=== PATIENT | male | born 1995 | race Caucasian/White ===

== ENCOUNTER 2025-03-01 05:26 | Inpatient (IN) | payer BC ==
[2025-03-01] MEDS ORDERED: Enoxaparin 100 MG (1 mL) SYRINGE ONE (05:49)
[2025-03-01 05:53] LABS: #Basophils 0.12 10x3/uL (0.0-0.2); #Eosinophils 0.64 10x3/uL (0.0-0.5); #Monocytes 0.55 10x3/uL (0.0-1.1); #Neutrophils 3.50 10x3/uL (1.5-8.4); %Basophils 1.6 % (0.0-2.0); %Eosinophils 8.8 % (0.0-6.0); %Lymphocytes 33.8 % (18.0-47.0); %Monocytes 7.5 % (0.0-10.0); %Neutrophils 48.0 % (40.0-75.0); Hematocrit 50.2 % (38.8-50.0); Hemoglobin 16.8 g/dL (13.5-17.5); Mean Corpuscular Hemoglobin 29.4 pg (27.0-33.0); Mean Corpuscular Volume 87.8 fL (81.2-95.1); Platelet Count 309 10x3/uL (150-450); Red Blood Cell (RBC) Count 5.72 10x6/uL (4.32-5.72); White Blood Cell (WBC) Count 7.30 10x3/uL (3.5-10.5)
[2025-03-01 06:07] LABS: ALT (SGPT) 35 U/L (Less than 45); AST (SGOT) 28 U/L (11-34); Albumin 4.7 g/dL (3.1-4.5); Alkaline Phosphatase 45 U/L (40-110); Anion Gap 14 mmol/L (10-20); BUN (Urea Nitrogen) 15 mg/dL (8.9-20.6); Bilirubin, Total 0.5 mg/dL (0.3-1.2); Calc. Creatinine Clearance 0 mL/min (70-130); Calcium 9.5 mg/dL (7.8-10.44); Carbon Dioxide 24 mmol/L (22-29); Chloride 105 mmol/L (98-107); Globulin 2.7 g/dL (2.4-3.5); Glucose 94 mg/dL (70-105); Potassium 3.8 mmol/L (3.5-5.1); Sodium 139 mmol/L (136-145)
[2025-03-01 06:13] LABS: Troponin I Less than 0.010 ng/mL (< 0.028)
[2025-03-01] MEDS ORDERED: dilTIAZem 25 MG/5 ML VIAL ONE (06:13)
[2025-03-01] MEDS ORDERED: Diltiazem HCl/D5W 125 MG in Premix 1 BAG IVPB SCH (06:45)
[2025-03-01] MEDS ORDERED: Acetaminophen 325 MG TAB PO PRN (07:28)
[2025-03-01 07:33] LABS: Magnesium 2.0 mg/dL (1.6-2.6)
[2025-03-01 08:09] LABS: Cocaine Metabolite Screen Negative (Negative); THC/Cannabinoid Screen Negative (Negative); Tricyclic Screen Negative (Negative)
[2025-03-01 08:44] LABS: Glucose, Urine (Dipstick) Normal (Negative); Leukocyte Negative (Negative); Protein, Urine (Dipstick) Negative (Neg-Trace); Specific Gravity, Urine 1.005 (1.005-1.030)
[2025-03-01 08:57] LABS: Bacteria/HPF None Seen HPF (None Seen); CAUTI Indications for Culture Dysuria,urgency,freq; RBC/HPF None Seen HPF (0-3); Urine Culture Reflex No No; WBC/HPF None Seen HPF (0-3)
[2025-03-01 11:24] VITALS: BMI 28.8
[2025-03-01 12:30] VITALS: TEMP 98.1
[2025-03-01] MEDS ORDERED: Lidocaine 1% (PF) 30 ML VIAL ONE (14:00)
[2025-03-01] MEDS ORDERED: PROPOFOL 200 MG/20 ML VIAL ONE (14:00)
[2025-03-01] MEDS: Famotidine 20 MG TAB PO SCH (14:17)
[2025-03-01 17:13] VITALS: BP 120/61
== END 2025-03-01 16:11 | disposition home or self-care (01) | DRG 310 ==
LOC: CSHERS 05:26 → SUATTDRO 05:26 → CSHTELE 07:07
PROVIDERS: ADMIT Internal Medicine; ATTEND Internal Medicine
PROC: 5A2204Z Restoration of Cardiac Rhythm, Single (ICD-10-PCS; principal; 2025-03-01)
DX: I48.91 Unspecified atrial fibrillation (principal); G47.33 Obstructive sleep apnea (adult) (pediatric); E86.0 Dehydration
CPT/HCPCS: 71045; 80053; 80306; 81001; 82550; 83735; 83880; 84443; 84484; 85025; 92960; 93005; 93010; 93312; J1650; J2003; J2250; J2704